=== PATIENT | male | born 1970 | race African-American/Black ===

== ENCOUNTER 2024-07-04 13:17 | Emergency (ER) | payer MEDICAID, OTHER ==
[~2024-07-04] VITALS: Ht 177.8 cm; Wt 68.0 kg
[2024-07-04 13:20] VITALS: BP 146/92; TEMP 36.7
[2024-07-04] MEDS ORDERED: IPRATROPIUM/ALBUTEROL 0.5-3(2.5)MG/3ML NEB HHN ONE (13:45)
[2024-07-04] MEDS: DEXAMETHASONE 10 MG/ML VIAL PO ONE (15:08)
[2024-07-04 15:32] VITALS: PULSE 97; RESP 18; O2SAT 94
[2024-07-04] MEDS: IPRATROPIUM/ALBUTEROL 0.5-3(2.5)MG/3ML NEB HHN NR (15:32)
[2024-07-04 15:44] LABS: BASOPHILS % 0.4 % (0.0-2.0); EOSINOPHILS % 2.8 % (0.0-5.0); HEMATOCRIT. 50.4 % (42.0-52.0); HEMOGLOBIN. 16.7 g/dL (14.0-18.0); LYMPHOCYTES % 18.9 % (20.0-50.0); MEAN CORPUSCULAR HEMOGLOBIN 31.1 pg (28.0-32.0); MEAN CORPUSCULAR HGB CONC 33.2 g/dL (31.0-37.0); MEAN CORPUSCULAR VOLUME 93.9 fL (80.0-94.0); NEUTROPHILS % 68.9 % (40.0-76.0); PLATELET 278 x1000/uL (130-400); RED BLOOD CELL COUNT 5.37 mill/uL (4.7-6.1); RED CELL DISTRIBUTION WIDTH 13.9 % (11.6-14.6); WHITE BLOOD COUNT 5.1 x1000/uL (4.5-11.0)
[2024-07-04 15:49] LABS: CHLORIDE 97 mEq/L (98-107); POTASSIUM 4.2 mEq/L (3.5-5.1); SODIUM 136 mEq/L (136-145)
[2024-07-04 15:50] LABS: CALCIUM 10.4 mg/dL (8.7-10.4); CARBON DIOXIDE 37 mEq/L (21-32)
[2024-07-04 15:55] LABS: CREATININE 0.9 mg/dL (0.6-1.3); GLUCOSE 95 mg/dL (70-105); UREA NITROGEN BLOOD 10 mg/dL (9-23)
[2024-07-04 15:56] LABS: TROPONIN I HIGH SENSITIVITY 5 ng/L (3.0-53)
[2024-07-04 16:04] LABS: ETHANOL BLOOD < 10 mg/dL (<10)
[2024-07-04] MEDS ORDERED: ALBU18HF2 IH (16:25)
== END 2024-07-04 17:00 | disposition home or self-care (01) ==
LOC: ER 13:17
DX: J45.901 Unspecified asthma with (acute) exacerbation (principal); Z79.52 Long term (current) use of systemic steroids; Z79.899 Other long term (current) drug therapy
CPT/HCPCS: 80048; 80320; 83880; 85025; 84484; 36415; 71045; 94640; 99284; J1100; Z7610 ×3; 94070; G0480

== ENCOUNTER 2024-07-04 22:00 | Emergency (ER) | payer MEDICAID ==
[~2024-07-04] VITALS: Ht 182.9 cm; Wt 61.0 kg
[~2024-07-04 22:00] MED LIST: ALBU18HF2 IH
[2024-07-04 22:21] VITALS: O2SAT 99
[2024-07-05 01:45] VITALS: BP 168/111; PULSE 95; RESP 16; TEMP 37; O2SAT 99
[2024-07-05 01:47] VITALS: TEMP 98.6
[2024-07-05] MEDS: ACETAMINOPHEN 325MG TABLET PO ONE (01:47)
== END 2024-07-05 01:49 | disposition home or self-care (01) ==
LOC: ER 22:00
DX: S90.829A Blister (nonthermal), unspecified foot, initial encounter (principal); J45.909 Unspecified asthma, uncomplicated; X58.XXXA Exposure to other specified factors, initial encounter; Y93.89 Activity, other specified; Y92.89 Other specified places as the place of occurrence of the external cause; Y99.8 Other external cause status
CPT/HCPCS: 99281

== ENCOUNTER 2024-11-15 16:42 | Emergency (ER) | payer MEDICAID ==
[~2024-11-15] VITALS: Ht 177.8 cm; Wt 64.0 kg
[2024-11-15 16:48] VITALS: O2SAT 100
[2024-11-15 17:34] VITALS: BP 128/88; PULSE 87; RESP 19; TEMP 37.2; O2SAT 100
[2024-11-15] MEDS ORDERED: ALBU18HF2 IH (17:37)
[2024-11-15] MEDS ORDERED: PRED5TAB48 MT (17:37)
== END 2024-11-15 17:46 | disposition home or self-care (01) ==
LOC: ER 16:42
DX: J45.901 Unspecified asthma with (acute) exacerbation (principal)
CPT/HCPCS: 99283

== ENCOUNTER 2024-11-28 15:24 | Emergency (ER) | payer MEDICAID ==
[~2024-11-28] VITALS: Ht 177.8 cm; Wt 73.0 kg
[~2024-11-28 15:24] MED LIST changes: +PRED5TAB48 MT
[2024-11-28] MEDS ORDERED: P20 PO (15:43)
[2024-11-28] MEDS ORDERED: ALBU18HF2 IH (15:43)
[2024-11-28] MEDS ORDERED: ALBUTEROL 6.7GM HFA INHALER ORI ONE (15:45)
[2024-11-28] MEDS ORDERED: LOTEN PO ONE (15:45)
[2024-11-28] MEDS: IPRATROPIUM/ALBUTEROL 0.5-3(2.5)MG/3ML NEB HHN ONE (15:50)
[2024-11-28 15:51] VITALS: PULSE 74; RESP 18; O2SAT 96
[2024-11-28] MEDS: LISINOPRIL 20MG TABLET PO NR (16:11)
[2024-11-28] MEDS: PREDNISONE 20MG TABLET PO ONE (16:12)
[2024-11-28 16:36] VITALS: BP 165/72; PULSE 75; RESP 15; TEMP 36.8; O2SAT 96
== END 2024-11-28 16:36 | disposition home or self-care (01) ==
LOC: ER 15:24
DX: J45.901 Unspecified asthma with (acute) exacerbation (principal); I10 Essential (primary) hypertension
CPT/HCPCS: 94640; 99283; J7512; Z7610 ×3; 94070

== ENCOUNTER 2025-02-28 17:37 | Inpatient (IN) | payer MEDICAID ==
[~2025-02-28] VITALS: Ht 182.9 cm; Wt 53.1 kg
[~2025-02-28 17:37] MED LIST changes: +LISI20TA31 PO; -PRED5TAB48 MT
[2025-02-28 17:57] VITALS: PULSE 78; RESP 14; O2SAT 84
[2025-02-28] MEDS: ALBUTEROL (0.083%) 2.5MG/3ML NEB HHN SCH (17:57)
[2025-02-28 18:14] LABS: BASOPHILS % 1.1 % (0.0-2.0); EOSINOPHILS % 7.7 % (0.0-5.0); HEMATOCRIT. 40.4 % (42.0-52.0); HEMOGLOBIN. 13.2 g/dL (14.0-18.0); LYMPHOCYTES % 35.0 % (20.0-50.0); MEAN PLATELET VOLUME 7.6 fl (7.4-10.4); MONOCYTES % 12.2 % (2.0-8.0); NEUTROPHILS % 44.0 % (40.0-76.0); PLATELET 235 x1000/uL (130-400); RED BLOOD CELL COUNT 4.23 mill/uL (4.7-6.1); RED CELL DISTRIBUTION WIDTH 14.8 % (11.6-14.6)
[2025-02-28] MEDS: METHYLPREDNISOLONE SOD SUCC 125MG/2ML (ACT-O-VIAL) IV ONE (18:14)
[2025-02-28] MEDS: AZITHROMYCIN 500MG/250ML 250 ML IV ONE (18:14)
[2025-02-28 18:23] LABS: CREATININE 0.8 mg/dL (0.6-1.3); UREA NITROGEN BLOOD 9 mg/dL (9-23)
[2025-02-28 18:26] VITALS: PULSE 77; RESP 14; O2SAT 100
[2025-02-28 18:31] LABS: TROPONIN I HIGH SENSITIVITY 5 ng/L (3.0-53)
[2025-02-28 19:06] VITALS: PULSE 79; RESP 14; O2SAT 100
[2025-02-28] MEDS ORDERED: ACETAMINOPHEN 325MG TABLET PO PRN (20:30)
[2025-02-28] MEDS ORDERED: MAGNESIUM/ALUMINUM HYDROXIDE/SIMETHICONE 30ML UDC PO PRN (20:30)
[2025-02-28] MEDS ORDERED: ONDANSETRON HCL 4MG/2ML INJ IV PRN (20:30)
[2025-02-28] MEDS ORDERED: IPRATROPIUM/ALBUTEROL 0.5-3(2.5)MG/3ML NEB HHN PRN (20:30)
[2025-02-28] MEDS ORDERED: ZOLPIDEM TARTRATE 5MG TABLET PO PRN (20:30)
[2025-02-28] MEDS ORDERED: DIPHENHYDRAMINE 50MG/ML VIAL IV PRN (20:30)
[2025-02-28] MEDS ORDERED: PROMETHAZINE/DEXTROMETHORPHAN 6.25-15MG/5ML PO PRN (20:30)
[2025-02-28] MEDS ORDERED: HYDRALAZINE 20MG/ML VIAL IV PRN (20:45)
[2025-02-28] MEDS: IPRATROPIUM/ALBUTEROL 0.5-3(2.5)MG/3ML NEB HHN SCH (20:46)
[2025-02-28 22:08] VITALS: BP 153/109; PULSE 65; RESP 20; TEMP 36.8; TEMP 36.8072; O2SAT 100
[2025-02-28] MEDS: FAMOTIDINE 20MG TABLET PO SCH (22:34)
[2025-02-28] MEDS: METHYLPREDNISOLONE SOD SUCC 125MG/2ML (ACT-O-VIAL) IV SCH (22:34)
[2025-02-28] MEDS: GUAIFENESIN 600MG ER TABLET PO SCH (22:34)
[2025-02-28] MEDS: SODIUM CHLORIDE 0.9% 3ML FLUSH IVF SCH (22:35)
[2025-02-28] MEDS: ENOXAPARIN 40MG/0.4ML SYR SUBCUT SCH (22:35)
[2025-03-01] VITALS (9 sets, daily range): BP systolic 112–153; BP diastolic 66–101; PULSE 66–88; RESP 14–20; TEMP 36.2–36.9; O2SAT 96–100
[2025-03-01] MEDS: CLONIDINE 0.1MG TABLET PO PRN (05:27)
[2025-03-01 07:17] LABS: INFLUENZA TYPE A Presumptive Negative (Pres. Neg.); INFLUENZA TYPE B Presumptive Negative (Pres. Neg.)
[2025-03-01] MEDS ORDERED: BENAZEPRIL 5MG TABLET PO SCH (09:00)
[2025-03-01] MEDS: ARIPIPRAZOLE 5MG TABLET PO SCH (09:11)
[2025-03-01] MEDS: PAROXETINE HCL 10MG TABLET PO SCH (09:11)
[2025-03-01] MEDS: LISINOPRIL 20MG TABLET PO SCH (09:11)
[2025-03-01] MEDS: AMLODIPINE 10MG TABLET PO SCH (09:12)
[2025-03-02] VITALS (9 sets, daily range): BP systolic 142–165; BP diastolic 60–106; PULSE 60–85; RESP 16–22; TEMP 35.9–36.7; O2SAT 94–100
[2025-03-03] VITALS (7 sets, daily range): BP systolic 134–146; BP diastolic 77–102; PULSE 67–87; RESP 18–20; TEMP 36.4–36.8; O2SAT 95–97
[2025-03-03] MEDS: ACETAMINOPHEN 325MG TABLET PO PRN (10:45)
[2025-03-03] MEDS: LISINOPRIL 20MG TABLET PO SCH (10:47)
[2025-03-03] MEDS ORDERED: LISI20TA31 PO (11:22)
[2025-03-03] MEDS ORDERED: ABIL5 PO (11:22)
[2025-03-03] MEDS ORDERED: PARO10TA74 PO (11:22)
[2025-03-03] MEDS ORDERED: BUDE6.9H INH (11:22)
== END 2025-03-03 13:40 | disposition home or self-care (01) | DRG 140 ==
LOC: ER 17:37 → 7WST 20:14 → ENRESERV 21:29
PROVIDERS: ADMIT Internal Medicine; ATTEND Internal Medicine
DX: J44.1 Chronic obstructive pulmonary disease with (acute) exacerbation (principal); J96.00 Acute respiratory failure, unspecified whether with hypoxia or hypercapnia; J45.901 Unspecified asthma with (acute) exacerbation; Z59.01 Sheltered homelessness; I10 Essential (primary) hypertension; Z72.0 Tobacco use; Z79.899 Other long term (current) drug therapy
CPT/HCPCS: 36415; 71045; 73630; 80048; 83605; 83880; 84484; 85025; 87426; 87804; 93005; 94070; 94640; 94664; 96365; 96375; 98960; 99285; J0456; J1650; J2919